=== PATIENT | male | born 1975 | race Caucasian/White ===

== ENCOUNTER 2020-06-23 12:44 | Outpatient (CLI) | payer OTHER | END 2020-06-23 12:45 | disposition home or self-care (01) | LOC: BICCT 12:44 | PROVIDERS: ATTEND Orthopaedic Surgery | DX: S97.81XA Crushing injury of right foot, initial encounter (principal); S92.311K Displaced fracture of first metatarsal bone, right foot, subsequent encounter for fracture with nonunion; M79.89 Other specified soft tissue disorders ==